=== PATIENT | female | born 1965 | race Caucasian/White ===

== ENCOUNTER → 2016-06-09 | Outpatient (CLI) | payer BC ==
[~2016-06-09] MED LIST: ALLEVE
--- NOTE | 2016-06-09 13:42 | DIAGNOSTIC IMAGING REPORT ---
RIGHT FOOT MIN 3 VIEWS ROUTINE CLINICAL HISTORY: RIGHT FOOT PAIN (1ST 4 TOES) Right pain COMPARISON: None. DISCUSSION: Nondisplaced cortical fracture base proximal phalanx third recovery fourth toe. No evidence for dislocation. Mild associated soft tissue edema. Mild ossification Achilles tendon insertion. IMPRESSION: Nondisplaced cortical fractures bases of proximal phalanges of the third and fourth toes. Electronically signed by: Rodrigue Kiran M.D. 06/09/2016 1:40 PM Dictated Date/Time: 06/09/2016 1:16 PM
== END | disposition home or self-care (01) ==
LOC: C.RAD1850 12:59
PROVIDERS: ATTEND Nurse Practitioner Family
DX: M79.671 Pain in right foot (principal)

== ENCOUNTER → 2016-06-19 | Outpatient (CLI) | payer BC ==
--- NOTE | 2016-06-19 14:10 | DIAGNOSTIC IMAGING REPORT ---
RIGHT FOOT MIN 3 VIEWS CLINICAL HISTORY: Right third and fourth toe fractures. COMPARISON: Right foot radiographs June 01, 2016. FINDINGS: Alignment of the tarsometatarsal joints is anatomic. A nondisplaced fracture within the base of the proximal phalanx of the right third toe is unchanged in alignment since prior exam of June 09, 2016. There is a possible nondisplaced fracture within the base of the distal phalanx of the right first toe and the base of the proximal phalanx of the fourth toe. IMPRESSION: 1. No change in alignment of the nondisplaced fracture of the base of the proximal phalanx of the right third toe. 2. Possible nondisplaced fractures within the base of the distal phalanx of the right first toe and the proximal phalanx of right fourth toe. Electronically signed by: Carlo Rhodes M.D. 06/19/2016 2:08 PM Dictated Date/Time: 06/19/2016 2:05 PM
== END | disposition home or self-care (01) ==
LOC: C.RDSM 13:56
PROVIDERS: ATTEND Physician Assistant
DX: S92.514A Nondisplaced fracture of proximal phalanx of right lesser toe(s), initial encounter for closed fracture (principal); X58.XXXA Exposure to other specified factors, initial encounter

== ENCOUNTER → 2016-07-10 | Outpatient (CLI) | payer BC ==
--- NOTE | 2016-07-10 14:47 | DIAGNOSTIC IMAGING REPORT ---
RIGHT FOOT 3 VIEWS CLINICAL HISTORY: Follow-up fracture. FINDINGS: 3 views the right foot are compared to study dated 06/19/2016. The skeletal structures appear osteopenic. Again seen are healing fractures through the base of the third proximal phalanx and the base of the first distal phalanx. Alignment is unchanged from 06/19/2016. Residual fracture lucency is evident. No definite fracture is seen involving the proximal phalanx of the fourth toe. No new fracture is seen. Mild arthritic change is noted at the first metatarsophalangeal joint. Tiny dorsal and plantar calcaneal enthesophytes are observed. Degenerative spurring is noted along the dorsal aspect of the tarsal bones. IMPRESSION: Unchanged alignment of healing fractures through the base of the first distal phalanx and the base of the third proximal phalanx. Electronically signed by: Hilton Ruiz M.D. 07/10/2016 2:46 PM Dictated Date/Time: 07/10/2016 2:42 PM
== END | disposition home or self-care (01) ==
LOC: C.RDSM 14:05
PROVIDERS: ATTEND Physician Assistant
DX: S92.514D Nondisplaced fracture of proximal phalanx of right lesser toe(s), subsequent encounter for fracture with routine healing (principal); X58.XXXD Exposure to other specified factors, subsequent encounter

== ENCOUNTER → 2016-10-08 | Outpatient (CLI) | payer BC ==
--- NOTE | 2016-10-08 16:00 | MAMMOGRAPHY REPORT ---
BILATERAL DIGITAL SCREENING MAMMOGRAM TOMOSYNTHESIS WITH CAD: 10/08/2016 CLINICAL HISTORY: Routine screening. Patient has no complaints. TECHNIQUE: Breast tomosynthesis in addition to standard 2D mammography was performed. Current study was also evaluated with a Computer Aided Detection (CAD) system. COMPARISON: Comparison is made to exams dated: 04/09/2015 mammogram, 07/28/2011 mammogram - [facility], 11/16/2007, 11/16/2007, 11/16/2007, and 10/31/2001 mammogram - [facility]. BREAST COMPOSITION: The tissue of both breasts is heterogeneously dense, which may obscure small mas ses. FINDINGS: There are stable intramammary lymph nodes in each upper outer quadrant. No new suspicious mass, architectural distortion or cluster of microcalcifications is seen. IMPRESSION: ACR BI-RADS CATEGORY 1: NEGATIVE There is no mammographic evidence of malignancy. A 1 year screening mammogram is recommended. The pa tient will receive written notification of the results. Approximately 10% of breast cancers are not detected with mammography. A negative mammographic report should not delay biopsy if a clinically suggestive mass is present. Deepti Blair M.D. ay/:10/08/2016 15:37:33 Supervisor [place]: Lea Jackson, [facility] letter sent: Normal 1/2 BI-RADS Code: ACR BI-RADS Category 1: Negative
== END | disposition home or self-care (01) ==
LOC: C.MAMM 14:48
PROVIDERS: ATTEND Family Medicine
DX: Z12.31 Encounter for screening mammogram for malignant neoplasm of breast (principal)

== ENCOUNTER → 2017-01-20 | Outpatient (CLI) | payer BC | END | disposition home or self-care (01) | LOC: C.PAPS 09:30 | PROVIDERS: ATTEND Physician Assistant | DX: Z01.419 Encounter for gynecological examination (general) (routine) without abnormal findings (principal) ==

== ENCOUNTER → 2017-01-20 | Outpatient (CLI) | payer BC | LOC: C.LABSPEC 17:36 | PROVIDERS: ATTEND Physician Assistant | DX: N94.10 Unspecified dyspareunia (principal) ==

== ENCOUNTER → 2017-01-26 | Outpatient (CLI) | payer OTHER, BC ==
--- NOTE | 2017-01-26 17:50 | DIAGNOSTIC IMAGING REPORT ---
R HIP UNILATERAL 2 VIEWS CLINICAL HISTORY: Right groin pain. COMPARISON: None FINDINGS: An intrauterine device is incidentally noted. Alignment of the right hip is anatomic. There is no fracture or suspicious lesion. Joint space is preserved. There is mild osteophytosis. There is no evidence for avascular necrosis. IMPRESSION: 1. Minimal osteoarthritis of the right hip. 2. No fracture or evidence for avascular necrosis. Electronically signed by: Carlo Rhodes M.D. 01/26/2017 5:48 PM Dictated Date/Time: 01/26/2017 5:48 PM
== END | disposition home or self-care (01) ==
LOC: C.RAD1850 16:26
PROVIDERS: ATTEND Nurse Practitioner Adult Health
DX: M16.11 Unilateral primary osteoarthritis, right hip (principal); R10.30 Lower abdominal pain, unspecified

== ENCOUNTER → 2017-03-16 | Outpatient (CLI) | payer OTHER | END | disposition home or self-care (01) | LOC: C.LABSPEC 18:22 | PROVIDERS: ATTEND Obstetrics & Gynecology | DX: Z20.2 Contact with and (suspected) exposure to infections with a predominantly sexual mode of transmission (principal) ==

== ENCOUNTER → 2017-05-03 | Outpatient (CLI) | payer OTHER ==
--- NOTE | 2017-05-03 13:43 | DIAGNOSTIC IMAGING REPORT ---
R KNEE 3 VIEWS CLINICAL HISTORY: RIGHT KNEE PAIN/INJURY COMPARISON: None. DISCUSSION: The bones are osteopenic. No fractures or dislocations are visualized. There are no erosive or destructive changes. IMPRESSION: 1. Mild osteopenia 2. No evidence of fracture 3. No erosive or destructive lesions are visualized Electronically signed by: Dave Kingston M.D. 05/03/2017 1:42 PM Dictated Date/Time: 05/03/2017 1:41 PM
== END | disposition home or self-care (01) ==
LOC: C.RAD1850 13:23
PROVIDERS: ATTEND Nurse Practitioner Adult Health
DX: M25.561 Pain in right knee (principal); S89.91XA Unspecified injury of right lower leg, initial encounter; X58.XXXA Exposure to other specified factors, initial encounter